=== PATIENT | male | born 1975 | race Caucasian/White ===

== ENCOUNTER → 2019-12-24 | Emergency (ER) | payer OTHER ==
[~2019-12-24] VITALS: Ht 170.2 cm; Wt 61.2 kg
[~2019-12-24] MED LIST: LORazepam 2MG/ML-1ML VIAL IV ONE; LORazepam 2MG/ML-1ML VIAL ONE
[2019-12-24 20:16] VITALS: BP 115/74
== END | disposition home or self-care (01) ==
LOC: ER 19:58
DX: F10.239 Alcohol dependence with withdrawal, unspecified (principal); F15.10 Other stimulant abuse, uncomplicated; R56.9 Unspecified convulsions
CPT/HCPCS: 96374; 99283; J2060